=== PATIENT | female | born 1970 | race Caucasian/White ===

== ENCOUNTER 2017-11-23 17:19 | Emergency (ER) | payer BC ==
[~2017-11-23] VITALS: Ht 165.1 cm; Wt 81.7 kg
[2017-11-23] MEDS ORDERED: ADDERALL 10 MG10 MG PO (17:33)
[2017-11-23] MEDS ORDERED: IBUPROFEN 200200 M1 PO (17:36)
[2017-11-23] MEDS ORDERED: ZOLOFT25 MG PO (17:36)
[2017-11-23] MEDS ORDERED: XANAX 0.25 MG0.25 MG PO (17:36)
[2017-11-23] MEDS ORDERED: SENNA8.6 MG PO (18:31)
== END 2017-11-23 18:38 | disposition home or self-care (01) ==
LOC: ER 17:19
DX: K56.41 Fecal impaction (principal); F17.210 Nicotine dependence, cigarettes, uncomplicated